=== PATIENT | female | born 1960 | race Caucasian/White ===

== ENCOUNTER 2018-04-18 12:26 | Outpatient (CLI) | payer BC ==
--- NOTE | 2018-04-18 13:44 | RAD ---
THORACIC SPINE FOUR VIEWS: History: Intervertebral disc disorder with radiculopathy. FINDINGS: Five lumbar type vertebral bodies. Lumbar spine vertebral body height is maintained. No fracture. Mil d loss of disc space height and osteophyte formation. In the neutral position, there is no significant spondylolisthesis. No abnormal motion upon extension or flexion. Lumbosacral junction is unremarkable. IMPRESSION: No significant spondylolisthesis upon flexion or extension. POS: DEANDRE
== END 2018-04-18 12:27 | disposition home or self-care (01) ==
LOC: MADRAD 12:26
PROVIDERS: ATTEND Neurological Surgery
DX: M51.16 Intervertebral disc disorders with radiculopathy, lumbar region (principal)
CPT/HCPCS: 72110

== ENCOUNTER 2018-10-11 13:27 | Outpatient (CLI) | payer BC ==
--- NOTE | 2018-10-11 15:32 | RAD ---
LUMBAR SPINE THREE VIEWS: HISTORY: Low back pain. Prior surgery. FINDINGS: There is lumbarization of the 1st sacral segment, which may be designated as the 5th lumbar level. B ilateral pedicles screws and vertical rods are in place, at the L4, L5, and L6 levels, without periha rdware lucency reliably demonstrated. The right L4 pedicle screw tip approaches the superior endplat e. Metallic disk replacement devices are place, with the more superior approaching the posterior asp ect of the disk space margin. The other pedicles are intact. Osteophytosis of the vertebral bodies and facets. No compression fra cture is apparent. Calcification of the arterial structures. IMPRESSION: 1. Postoperative and mild degenerative changes of the lumbar spine. 2. No acute osseous abnormalities are demonstrated. 3. Atherosclerosis. 4. There is a transitional vertebra at the lumbosacral junction, so that great care must be taken wh en assigning vertebral level numbering of the lumbar spine. POS: DEANDRE
== END 2018-10-11 13:28 | disposition home or self-care (01) ==
LOC: MADRAD 13:27
PROVIDERS: ATTEND Neurological Surgery
DX: M51.16 Intervertebral disc disorders with radiculopathy, lumbar region (principal); M47.26 Other spondylosis with radiculopathy, lumbar region; I70.90 Unspecified atherosclerosis; Z98.890 Other specified postprocedural states
CPT/HCPCS: 72100

== ENCOUNTER 2018-11-29 13:55 | Outpatient (CLI) | payer BC ==
--- NOTE | 2018-11-29 14:41 | RAD ---
LUMBAR SPINE SERIES THREE VIEWS: History: Back pain post op. Comparison: 10-11-18 FINDINGS: Bilateral pedicle screws have been placed at the L3, L4, and L5 levels. Disc implants are seen at the intervening disc levels. All of these findings appear stable as compared to the prior examination. D egenerative osteophytes are seen along the course of the spine. The bones appear slightly demineraliz ed. Surgical clips are seen along the left side of the pelvis. IMPRESSION: Stable post op changes of the spine. POS: DEANDRE
== END 2018-11-29 13:56 | disposition home or self-care (01) ==
LOC: MADRAD 13:55
PROVIDERS: ATTEND Neurological Surgery
DX: M51.16 Intervertebral disc disorders with radiculopathy, lumbar region (principal); Z98.890 Other specified postprocedural states
CPT/HCPCS: 72100

== ENCOUNTER 2019-02-28 14:02 | Emergency (ER) | payer BC ==
--- NOTE | 2019-02-28 15:03 | RAD ---
3 views lumbar spine: 02/28/2019 COMPARISON: 11/29/2018 HISTORY: Fall, low back pain FINDINGS: 6 lumbar type vertebral bodies are noted. Intervertebral disc devices are noted at L4-5 and L5-6. Bilateral L4, L5, and L6 pedicle screws are present with vertically oriented interlocking rods. There is lateral osteophyte formation on the left at L2-3 and L3-4. The pedicle screw on the right at L4 approaches the superior endplate of the L4 vertebral body and th ere may be slight lucency along the course of the screw, which may be associated with loosening. Location of hardware could be best assessed via follow-up examination. No anterolisthesis or retrolis thesis. No acute fracture or evidence of dislocation. IMPRESSION: Postoperative and degenerative change as detailed above.
== END 2019-02-28 15:38 | disposition home or self-care (01) ==
LOC: MADERS 14:02
DX: M54.5 Low back pain (principal); E11.9 Type 2 diabetes mellitus without complications; I10 Essential (primary) hypertension; F17.210 Nicotine dependence, cigarettes, uncomplicated; Z79.84 Long term (current) use of oral hypoglycemic drugs; Z79.899 Other long term (current) drug therapy
CPT/HCPCS: 72100

== ENCOUNTER 2020-03-18 23:34 | Emergency (ER) | payer BC, SELFPAY ==
[2020-03-19] MEDS ORDERED: Ketamine 50 MG/ML (10ML VIAL) ONE (00:50)
[2020-03-19] MEDS ORDERED: predniSONE 20 MG TAB ONE (00:51)
== END 2020-03-19 01:49 | disposition home or self-care (01) ==
LOC: MADERS 23:34
DX: M79.604 Pain in right leg (principal); E11.9 Type 2 diabetes mellitus without complications; E78.5 Hyperlipidemia, unspecified; I10 Essential (primary) hypertension; J44.9 Chronic obstructive pulmonary disease, unspecified; F41.9 Anxiety disorder, unspecified; F32.9 Major depressive disorder, single episode, unspecified; F17.210 Nicotine dependence, cigarettes, uncomplicated
CPT/HCPCS: 96372; 99283; J7512

== ENCOUNTER 2020-10-03 21:42 | Emergency (ER) | payer BC ==
[2020-10-03] MEDS ORDERED: predniSONE 20 MG TAB ONE (22:01)
[2020-10-03] MEDS ORDERED: Cyclobenzaprine 10 MG TAB ONE (22:01)
[2020-10-03] MEDS ORDERED: Ibuprofen 800 MG TAB ONE (22:01)
== END 2020-10-03 22:12 | disposition home or self-care (01) ==
LOC: MADERS 21:42
DX: M25.512 Pain in left shoulder (principal); M79.10 Myalgia, unspecified site; R21 Rash and other nonspecific skin eruption; E11.9 Type 2 diabetes mellitus without complications; E78.5 Hyperlipidemia, unspecified; I10 Essential (primary) hypertension; J44.9 Chronic obstructive pulmonary disease, unspecified; F17.210 Nicotine dependence, cigarettes, uncomplicated; Z79.891 Long term (current) use of opiate analgesic; Z79.84 Long term (current) use of oral hypoglycemic drugs; Z79.899 Other long term (current) drug therapy
CPT/HCPCS: 99283; J7512

== ENCOUNTER 2021-01-28 16:32 | Emergency (ER) | payer BC ==
[2021-01-28 16:59] LABS: Bilirubin Negative (Negative); Blood, Urine Negative (Negative); Clarity Clear (Clear); Glucose, Urine (Dipstick) Negative (Negative); Ketone, Urine Negative (Negative); Leukocyte Negative (Negative); Nitrite Negative (Negative); Protein, Urine (Dipstick) Negative (Neg-Trace); Urobilinogen 0.2 mg/dL (Less than 2)
[2021-01-28 17:48] LABS: #Basophils 0.1 thou/uL (0.0-0.2); #Eosinphils 0.3 thou/uL (0.0-0.7); #Monocytes 1.1 thou/uL (0.11-0.59); #Neutrophils 7.4 thou/uL (1.40-6.50); %Eosinophils 2.9 % (0.0-10.0); %Monocytes 8.9 % (0.0-10.0); %Neutrophils 62.2 % (42.0-75.0); Hemoglobin 11.4 g/dL (12.0-16.0); Mean Corpuscular HGB CONC 30.1 g/dL (32.0-36.0); Mean Corpuscular Hemoglobin 28.2 pg (27.0-31.0); Mean Corpuscular Volume 93.6 fL (78.0-98.0); Mean Platelet Volume 7.6 fL (7.4-10.4); Platelet Count 366 thou/uL (130-400); RBC Distribution Width 15.7 % (11.5-14.5); Red Blood Cell (RBC) Count 4.05 mill/uL (4.20-5.40); White Blood Cell (WBC) Count 11.9 thou/uL (4.8-10.8)
[2021-01-28 18:06] LABS: ALT (SGPT) 28 U/L (8-55); AST (SGOT) 27 U/L (5-34); Albumin 4.1 g/dL (3.4-4.8); Alkaline Phosphatase 84 U/L (40-110); Anion Gap 16 mmol/L (10-20); BUN (Urea Nitrogen) 16 mg/dL (9.8-20.1); Bilirubin, Total 0.3 mg/dL (0.2-1.2); Calc. Creatinine Clearance 0 mL/min (70-130); Calcium 9.3 mg/dL (7.8-10.44); Carbon Dioxide 23 mmol/L (23-31); Chloride 109 mmol/L (98-107); Glucose 117 mg/dL (80-115); Lipase 51 U/L (8-78); Potassium 3.9 mmol/L (3.5-5.1); Protein, Total 7.1 g/dL (5.8-8.1); Sodium 144 mmol/L (136-145)
[2021-01-28] MEDS ORDERED: Sodium Chloride 0.9% 1,000 ML ONE (19:29)
[2021-01-28] MEDS ORDERED: Fentanyl 100 MCG/2 ML VIAL ONE (19:29)
[2021-01-28] MEDS ORDERED: methylPREDNISolone Sod Succ/PF 125 MG/2 ML VIAL ONE (19:29)
== END 2021-01-28 20:20 | disposition short-term general hospital (02) ==
LOC: MADERS 16:32
DX: M54.5 Low back pain (principal); R30.0 Dysuria; I10 Essential (primary) hypertension; J44.9 Chronic obstructive pulmonary disease, unspecified; E11.9 Type 2 diabetes mellitus without complications; E78.5 Hyperlipidemia, unspecified; F17.210 Nicotine dependence, cigarettes, uncomplicated; Z79.899 Other long term (current) drug therapy; Z79.891 Long term (current) use of opiate analgesic
CPT/HCPCS: 36415; 72131; 74176; 80053; 81003; 83605; 83690; 85025; 96374; 96375; J2930; J3010; J7050

== ENCOUNTER 2021-06-03 14:16 | Outpatient (CLI) | payer OTHER | END 2021-06-03 14:17 | disposition home or self-care (01) | LOC: MADRAD 14:16 | PROVIDERS: ATTEND Family Medicine | DX: U07.1 COVID-19 (principal) | CPT/HCPCS: 71046 ==

== ENCOUNTER 2021-11-25 16:31 | Emergency (ER) | payer OTHER ==
[2021-11-25] MEDS ORDERED: Ketorolac Tromethamine 30 MG/ML VIAL ONE (17:43)
== END 2021-11-25 18:00 | disposition home or self-care (01) ==
LOC: MADERS 16:31
DX: S46.911A Strain of unspecified muscle, fascia and tendon at shoulder and upper arm level, right arm, initial encounter (principal); I10 Essential (primary) hypertension; J44.9 Chronic obstructive pulmonary disease, unspecified; E11.9 Type 2 diabetes mellitus without complications; E78.5 Hyperlipidemia, unspecified; J45.909 Unspecified asthma, uncomplicated; F17.210 Nicotine dependence, cigarettes, uncomplicated; Y04.0XXA Assault by unarmed brawl or fight, initial encounter
CPT/HCPCS: 72125; 96372; J1885

== ENCOUNTER 2022-04-27 17:08 | Emergency (ER) | payer BC, SELFPAY ==
[2022-04-27] MEDS ORDERED: Ketorolac Tromethamine 30 MG/ML VIAL ONE (17:51)
[2022-04-27] MEDS ORDERED: traMADol HCl 50 MG TAB ONE (20:01)
[2022-04-27] MEDS ORDERED: Cyclobenzaprine 10 MG TAB ONE (20:02)
== END 2022-04-27 20:06 | disposition home or self-care (01) ==
LOC: MADERS 17:08
DX: M54.42 Lumbago with sciatica, left side (principal); M54.12 Radiculopathy, cervical region; I10 Essential (primary) hypertension; E11.9 Type 2 diabetes mellitus without complications; E78.5 Hyperlipidemia, unspecified; J44.9 Chronic obstructive pulmonary disease, unspecified; M79.7 Fibromyalgia; F17.210 Nicotine dependence, cigarettes, uncomplicated; Z79.84 Long term (current) use of oral hypoglycemic drugs; Z79.899 Other long term (current) drug therapy
CPT/HCPCS: 96372; 99283; J1885

== ENCOUNTER 2023-03-23 19:37 | Emergency (ER) | payer MEDICARE | END 2023-03-23 20:51 | disposition home or self-care (01) | LOC: MADERS 19:37 | DX: B02.9 Zoster without complications (principal); I10 Essential (primary) hypertension; J44.9 Chronic obstructive pulmonary disease, unspecified; E11.9 Type 2 diabetes mellitus without complications; Z79.84 Long term (current) use of oral hypoglycemic drugs; Z79.899 Other long term (current) drug therapy; F17.210 Nicotine dependence, cigarettes, uncomplicated | CPT/HCPCS: 99282 ==

== ENCOUNTER 2023-04-30 21:40 | Emergency (ER) | payer MEDICARE ==
[2023-04-30 22:10] LABS: Bilirubin Small (Negative); Blood, Urine Negative (Negative); Glucose, Urine (Dipstick) Negative (Negative); Ketone, Urine 15 mg/dL (Negative); Leukocyte Negative (Negative); Nitrite Negative (Negative); Protein, Urine (Dipstick) 30 mg/dL (Neg-Trace); pH, Urine 5.5 (5.0-9.0)
[2023-04-30 22:19] LABS: #Eosinphils 0.1 thou/uL (0.0-0.7); #Lymphocytes 2.6 thou/uL (1.20-3.40); #Monocytes 0.6 thou/uL (0.11-0.59); #Neutrophils 5.3 thou/uL (1.40-6.50); %Basophils 0.5 % (0.0-1.0); %Eosinophils 1.5 % (0.0-10.0); %Lymphocytes 29.6 % (21.0-51.0); %Monocytes 7.4 % (0.0-10.0); Hematocrit 37.1 % (36.0-47.0); Hemoglobin 11.8 g/dL (12.0-16.0); Mean Corpuscular HGB CONC 31.9 g/dL (32.0-36.0); Mean Corpuscular Hemoglobin 29.5 pg (27.0-31.0); Mean Corpuscular Volume 92.5 fl (78.0-98.0); Mean Platelet Volume 7.7 fL (7.4-10.4); Platelet Count 348 10x3/uL (130-400); RBC Distribution Width 13.7 % (11.5-14.5); Red Blood Cell (RBC) Count 4.01 mill/uL (4.20-5.40); White Blood Cell (WBC) Count 8.7 10x3/uL (4.8-10.8)
[2023-04-30 22:21] LABS: Clarity Slightly Cloudy (Clear); Specific Gravity, Urine 1.026 (1.002-1.036)
[2023-04-30 22:22] LABS: Amphetamine Detected (NotDetected); Bacteria/HPF Rare-Few HPF (None Seen); Barbiturates Screen Not Detected (NotDetected); Benzodiazepine Screen Not Detected (NotDetected); CAUTI Indications for Culture Alt mental st,lethar; Calcium Oxalate Crystals 1+ HPF (None Seen); Cocaine Metabolite Screen Not Detected (NotDetected); Methadone Not Detected (NotDetected); Methamphetamine Detected (NotDetected); Mucous/LPF 3+ LPF (<2+); Opiate Screen Not Detected (NotDetected); Oxycodone Screen Not Detected (NotDetected); Phencyclidine (PCP) Not Detected (NotDetected); RBC/HPF 0-3 HPF (0-3); THC/Cannabinoid Screen Not Detected (NotDetected); Tricyclic Screen Not Detected (NotDetected)
[2023-04-30 22:23] LABS: Urine Culture Reflex No No
[2023-04-30 22:40] LABS: ALT (SGPT) 10 U/L (8-55); AST (SGOT) 11 U/L (5-34); Acetaminophen Less than 10 mcg/mL (10.0-30.0); Albumin 3.5 g/dL (3.4-4.8); Alcohol Less than 10.0 mg/dL (Less than 10); Alkaline Phosphatase 85 U/L (40-110); Anion Gap 16 mmol/L (10-20); BUN (Urea Nitrogen) 19 mg/dL (9.8-20.1); Bilirubin, Total 0.2 mg/dL (0.2-1.2); Calc. Creatinine Clearance 0 mL/min (70-130); Calcium 9.5 mg/dL (7.8-10.44); Carbon Dioxide 25 mmol/L (23-31); Chloride 107 mmol/L (98-107); Estimated GFR 73; Globulin 3.3 g/dL (2.4-3.5); Glucose 143 mg/dL (80-115); Potassium 3.7 mmol/L (3.5-5.1); Protein, Total 6.8 g/dL (5.8-8.1); Salicylate Less than 8.0 mg/dL (15.0-30.0); Sodium 144 mmol/L (136-145)
== END 2023-05-01 02:56 | disposition home or self-care (01) ==
LOC: MADERS 21:40 → EEVIPCON 21:40 → MADERS 05-01 02:56
DX: R45.851 Suicidal ideations (principal); I10 Essential (primary) hypertension; E11.9 Type 2 diabetes mellitus without complications; J44.9 Chronic obstructive pulmonary disease, unspecified; M79.7 Fibromyalgia; F17.210 Nicotine dependence, cigarettes, uncomplicated; Z79.84 Long term (current) use of oral hypoglycemic drugs; Z79.899 Other long term (current) drug therapy
CPT/HCPCS: 36415; 80053; 80306; 80307; 81001; 84443; 85025; 93005

== ENCOUNTER 2023-10-07 17:53 | Emergency (ER) | payer MEDICARE ==
[2023-10-07 18:32] LABS: SARS-CoV-2 NAA Rapid Test DETECTED (NotDetected)
[2023-10-07] MEDS ORDERED: Albuterol 200 PUFF (6.7GM INHALER) ONE (18:54)
[2023-10-07] MEDS ORDERED: Azithromycin 250 MG TAB ONE (18:55)
[2023-10-07] MEDS ORDERED: predniSONE 20 MG TAB ONE (18:55)
== END 2023-10-07 19:30 | disposition home or self-care (01) ==
LOC: MADERS 17:53
DX: U07.1 COVID-19 (principal); J44.1 Chronic obstructive pulmonary disease with (acute) exacerbation; E11.9 Type 2 diabetes mellitus without complications; E78.5 Hyperlipidemia, unspecified; I10 Essential (primary) hypertension; F17.210 Nicotine dependence, cigarettes, uncomplicated; Z79.899 Other long term (current) drug therapy; Z79.84 Long term (current) use of oral hypoglycemic drugs
CPT/HCPCS: 71045; 87804 ×2; 99284; U0002; J7512

== ENCOUNTER 2024-01-16 14:34 | Emergency (ER) | payer MEDICARE, OTHER ==
[2024-01-16] MEDS ORDERED: Acetaminophen 500 MG TAB ONE (15:23)
== END 2024-01-16 16:00 | disposition home or self-care (01) ==
LOC: MADERS 14:34
DX: S46.912A Strain of unspecified muscle, fascia and tendon at shoulder and upper arm level, left arm, initial encounter (principal); S29.011A Strain of muscle and tendon of front wall of thorax, initial encounter; E86.0 Dehydration; I10 Essential (primary) hypertension; J44.9 Chronic obstructive pulmonary disease, unspecified; E11.9 Type 2 diabetes mellitus without complications; E78.5 Hyperlipidemia, unspecified; F17.210 Nicotine dependence, cigarettes, uncomplicated; W20.8XXA Other cause of strike by thrown, projected or falling object, initial encounter; Z79.84 Long term (current) use of oral hypoglycemic drugs; Z79.899 Other long term (current) drug therapy
CPT/HCPCS: 72100; 93005

== ENCOUNTER 2024-05-27 09:07 | Emergency (ER) | payer MEDICARE, OTHER ==
[2024-05-27] MEDS ORDERED: Ketorolac Tromethamine 30 MG (1 mL) VIAL ONE (11:06)
== END 2024-05-27 11:22 | disposition home or self-care (01) ==
LOC: MADERS 09:07
DX: S40.011A Contusion of right shoulder, initial encounter (principal); S20.211A Contusion of right front wall of thorax, initial encounter; E11.9 Type 2 diabetes mellitus without complications; I10 Essential (primary) hypertension; E78.5 Hyperlipidemia, unspecified; F17.210 Nicotine dependence, cigarettes, uncomplicated; Z79.899 Other long term (current) drug therapy; Z79.84 Long term (current) use of oral hypoglycemic drugs; W01.198A Fall on same level from slipping, tripping and stumbling with subsequent striking against other object, initial encounter
CPT/HCPCS: 71100; 73030; 73070; J1885; 96372; 99283